=== PATIENT | female | born 1935 | race Caucasian/White ===

== ENCOUNTER 2021-01-16 16:44 | Emergency (ER) | payer MEDICARE, OTHER ==
[~2021-01-16] VITALS: Ht 154.9 cm; Wt 54.4 kg
[2021-01-16 19:02] LABS: BASOPHIL 0.5 % (0-2); EOSINOPHIL 2.1 % (0-7); HCT 39.5 % (37.0-47.0); HGB 12.9 g/dl (12.5-16.0); LYMPHOCYTE 17.5 % (15-48); MCH 29.5 pg (25.0-31.0); MCHC 32.7 g/dL (32.0-36.0); MCV 90.2 fL (78.0-100.0); MONOCYTE 7.1 % (0-12); MPV 10.6 fL (6.0-9.5); NEUTROPHIL 72.4 % (41-80); NRBC 0; PLT 245 K/uL (150-400); RBC 4.38 M/uL (4.20-5.40); RDW 12.8 % (11.5-14.0); WBC 9.3 K/uL (4.0-10.5)
[2021-01-16 19:18] LABS: BUN/CREAT RATIO (CALC) 22.5 RATIO; CREATININE 0.8 mg/dL (0.51-0.95); POTASSIUM 3.7 mmol/L (3.5-5.1)
[2021-01-16 19:19] LABS: INR 0.96 (0.9-1.2); PROTHROMBIN TIME 12.2 SECONDS (11.8-13.4); PTT 25.2 SECONDS (24.4-34.7)
[2021-01-17 09:04] LABS: BILIRUBIN NEGATIVE (NEGATIVE); BLOOD NEGATIVE Ery/uL (NEGATIVE); CLARITY CLEAR (CLEAR); COLOR YELLOW (YELLOW); GLUCOSE (U) NORMAL (NORMAL); LEUKOCYTES NEGATIVE Leu/uL (NEGATIVE); NITRITE NEGATIVE (NEGATIVE); PROTEIN NEGATIVE (NEGATIVE); SPECIFIC GRAVITY 1.015 (1.001-1.030); UROBILINOGEN 0.2 mg/dL (0.2-1.0); pH 6.5 (5.0-9.0)
== END 2021-01-17 09:30 | disposition home or self-care (01) ==
LOC: FER 16:44
PROVIDERS: Emergency Medicine
DX: S06.5X0A Traumatic subdural hemorrhage without loss of consciousness, initial encounter (principal); I10 Essential (primary) hypertension; Z20.822 Contact with and (suspected) exposure to COVID-19; Z88.0 Allergy status to penicillin; W19.XXXA Unspecified fall, initial encounter; Y92.009 Unspecified place in unspecified non-institutional (private) residence as the place of occurrence of the external cause
CPT/HCPCS: 36415; 70450; 71045; 72125; 80048; 81003; 84484; 85025; 85610; 85730; 93005; U0002

== ENCOUNTER 2021-07-08 07:50 | Emergency (ER) | payer MEDICARE, OTHER ==
[~2021-07-08] VITALS: Ht 154.9 cm; Wt 47.2 kg
[2021-07-08 10:20] LABS: BILIRUBIN NEGATIVE (NEGATIVE); BLOOD NEGATIVE Ery/uL (NEGATIVE); CLARITY CLEAR (CLEAR); COLOR YELLOW (YELLOW); GLUCOSE (U) NORMAL (NORMAL); LEUKOCYTES NEGATIVE Leu/uL (NEGATIVE); NITRITE NEGATIVE (NEGATIVE); PROTEIN NEGATIVE (NEGATIVE); SPECIFIC GRAVITY <=1.005 (1.001-1.030); UROBILINOGEN 0.2 mg/dL (0.2-1.0)
[2021-07-08 11:20] LABS: BASOPHIL 0.5 % (0-2); EOSINOPHIL 0.4 % (0-7); HCT 40.4 % (37.0-47.0); HGB 12.9 g/dl (12.5-16.0); LYMPHOCYTE 9.9 % (15-48); MCHC 31.9 g/dL (32.0-36.0); MCV 90.8 fL (78.0-100.0); MONOCYTE 7.9 % (0-12); MPV 10.4 fL (6.0-9.5); NEUTROPHIL 80.9 % (41-80); NRBC 0; PLT 236 K/uL (150-400); RBC 4.45 M/uL (4.20-5.40); RDW 13.7 % (11.5-14.0); WBC 7.6 K/uL (4.0-10.5)
[2021-07-08 11:49] LABS: ALBUMIN 4.2 g/dL (3.4-5.0); BILIRUBIN - TOTAL 0.3 mg/dL (0.2-1.0); CREATININE 0.75 mg/dL (0.51-0.95); GLOBULIN (CALCULATION) 2.8 g/dL; POTASSIUM 3.7 mmol/L (3.5-5.1)
== END 2021-07-08 16:47 | disposition other institution (70) ==
LOC: FER 07:50
PROVIDERS: Emergency Medicine
DX: I21.4 Non-ST elevation (NSTEMI) myocardial infarction (principal); I10 Essential (primary) hypertension; Z88.0 Allergy status to penicillin
CPT/HCPCS: 36415; 70450; 71045; 80053; 81003; 84443; 84484; 85025; 93005; J1650

== ENCOUNTER 2021-10-28 14:52 | Emergency (ER) | payer MEDICARE, OTHER | END 2021-10-29 | disposition other institution (70) | LOC: FER 14:52 | DX: S02.2XXA Fracture of nasal bones, initial encounter for closed fracture (principal); S51.811A Laceration without foreign body of right forearm, initial encounter; I25.10 Atherosclerotic heart disease of native coronary artery without angina pectoris; I10 Essential (primary) hypertension; Z23 Encounter for immunization; Z88.0 Allergy status to penicillin; Z88.1 Allergy status to other antibiotic agents; W01.0XXA Fall on same level from slipping, tripping and stumbling without subsequent striking against object, initial encounter; Y92.009 Unspecified place in unspecified non-institutional (private) residence as the place of occurrence of the external cause | CPT/HCPCS: 70450; 70486; 72125; 90471; 90714 ==